=== PATIENT | male | born 1985 | race African-American/Black ===

== ENCOUNTER 2019-12-10 09:26 | Emergency (ER) | payer SELFPAY ==
[2019-12-10] MEDS ORDERED: TETANUS & DIPHTHERIA TOX,ADULT 0.5 ML VIAL ONE (10:18)
[2019-12-10] MEDS ORDERED: FENTANYL CITR 100 MCG/2 ML ONE (10:18)
[2019-12-10] MEDS ORDERED: PIPER/TAZO/NS 3.375gm 3.375 GM/100 ML BAG ONE (10:18)
[2019-12-10] MEDS ORDERED: NA CHLORIDE 0.9% 2,000 ML ONE (10:22)
[2019-12-10 10:23] LABS: Absolute Lymphocytes (CBC) 2.4 K/uL (0.7-4.9); Basophils % 0.6 % (0-1.3); Hematocrit 40.5 % (39.6-49.0); Lymphocytes % 17.6 % (15.3-44.8); MPV 8.3 fL (7.6-11.3); RBC Red Blood Cell Count 4.84 M/uL (4.33-5.43)
[2019-12-10 10:35] LABS: BUN Blood Urea Nitrogen 16 mg/dL (7-18); Bicarbonate 25 mmol/L (21-32); Glucose Level 112 mg/dL (74-106); Potassium 3.7 mmol/L (3.5-5.1); Sodium Level 139 mmol/L (136-145)
[2019-12-10] MEDS ORDERED: VANCOMYCIN 1.5 GM in NA CHLORIDE 0.9% 500 ML IVPB ONE (11:00)
--- NOTE | 2019-12-10 11:21 | RAD REPORT ---
EXAM DESCRIPTION: RAD - Elbow Left 2 View - 12/10/2019 10:45 am CLINICAL HISTORY: Arm pain and swelling, suspected abscess COMPARISON: None. FINDINGS: No fracture is identified and no elevated posterior fat pad. No dislocation periosteal reaction. Prominent soft tissues are present posterior to the proximal fore arm. No air or foreign body in the soft tissues. IMPRESSION: Posterior left elbow and proximal forearm soft tissue swelling with no air or foreign venancio dy. No acute bone or joint component seen.
[2019-12-10] MEDS ORDERED: LIDOCAINE 1% MPF 5 ML VIAL ONE (13:59)
--- NOTE | 2019-12-10 14:19 | EDPHYS ---
Physician Documentation [facility] Name: Kailash Delgado Age: 34 yrs Sex: Male : 1985 Arrival Date: 12/10/2019 Time: 09:28 Bed 13 Private MD: RAFY Physician Eber Cuenca HPI: 12/09 10:02 This 34 yrs old Black Male presents to ER via Ambulatory with complaints of Abscess. snw 10:02 The patient presents with an abscess of the palmar aspect of left forearm. Description: snw The affected area is moderate sized, large, well demarcated, draining, erythematous, swollen, tense. Onset: The symptoms/episode began/occurred gradually, 1 week(s) ago, and became worse and became persistent. Associated signs and symptoms: Pertinent positives: left elbow edema. Modifying factors: the symptoms are alleviated by nothing. Severity of symptoms: At their worst the symptoms were severe. The patient has not experienced similar symptoms in the past. The patient has not recently seen a physician. Historical: - Allergies: 09:36 No Known Allergies; ss - Home Meds: 09:36 None [Active]; ss - PMHx: 09:36 None; ss - PSHx: 09:36 None; ss - Immunization history:: Adult Immunizations up to date. - Social history:: Smoking status: Patient reports the use of cigarette tobacco products, smokes one pack cigarettes per day. ROS: 09:59 Constitutional: Negative for fever, chills, and weight loss, Eyes: Negative for injury, snw pain, redness, and discharge, ENT: Negative for injury, pain, and discharge, Neck: Negative for injury, pain, and swelling, Cardiovascular: Negative for chest pain, palpitations, and edema, Respiratory: Negative for shortness of breath, cough, wheezing, and pleuritic chest pain, Abdomen/GI: Negative for abdominal pain, nausea, vomiting, diarrhea, and constipation, Back: Negative for injury and pain, : Negative for injury, bleeding, discharge, and swelling, MS/Extremity: Negative for injury and deformity, Neuro: Negative for headache, weakness, numbness, tingling, and seizure. 09:59 Skin: Positive for abscess, swelling, of the palmar aspect of left forearm, tenderness, began draining 3-4 days ago. Exam: 09:59 Constitutional: This is a well developed, well nourished patient who is awake, alert, snw and in no acute distress. Head/Face: Normocephalic, atraumatic. Eyes: Pupils equal round and reactive to light, extra-ocular motions intact. Lids and lashes normal. Conjunctiva and sclera are non-icteric and not injected. Cornea within normal limits. Periorbital areas with no swelling, redness, or edema. ENT: Nares patent. No nasal discharge, no septal abnormalities noted. Tympanic membranes are normal and external auditory canals are clear. Oropharynx with no redness, swelling, or masses, exudates, or evidence of obstruction, uvula midline. Mucous membranes moist. Neck: Trachea midline, no thyromegaly or masses palpated, and no cervical lymphadenopathy. Supple, full range of motion without nuchal rigidity, or vertebral point tenderness. No Meningismus. Chest/axilla: Normal chest wall appearance and motion. Nontender with no deformity. No lesions are appreciated. Cardiovascular: Regular rate and rhythm with a normal S1 and S2. No gallops, murmurs, or rubs. Normal PMI, no JVD. No pulse deficits. Respiratory: Lungs have equal breath sounds bilaterally, clear to auscultation and percussion. No rales, rhonchi or wheezes noted. No increased work of breathing, no retractions or nasal flaring. Abdomen/GI: Soft, non-tender, with normal bowel sounds. No distension or tympany. No guarding or rebound. No evidence of tenderness throughout. Back: No spinal tenderness. No costovertebral tenderness. Full range of motion. MS/ Extremity: Pulses equal, no cyanosis. Neurovascular intact. Full, normal range of motion. left elbow swollen, + ROM Neuro: Awake and alert, GCS 15, oriented to person, place, time, and situation. Cranial nerves II-XII grossly intact. Motor strength 5/5 in all extremities. Sensory grossly intact. Cerebellar exam normal. Normal gait. Psych: Awake, alert, with orientation to person, place and time. Behavior, mood, and affect are within normal limits. 09:59 Skin: Appearance: normal except for affected area, Color: normal in color, abscess, that is moderate sized, of the palmar aspect of left forearm, with drainage, that is purulent, cellulitis, induration, that is moderate is noted, Other without fluctuance. Vital Signs: 09:35 BP 117 / 94; Pulse 87; Resp 18; Temp 98.2(TE); Pulse Ox 97% on R/A; Weight 56.7 kg; ss Height 5 ft. 5 in. (165.10 cm); Pain 8/10; 10:06 BP 106 / 76; Pulse 77; Resp 18; Pulse Ox 99% on R/A; Pain 8/10; em 09:35 Body Mass Index 20.80 (56.70 kg, 165.10 cm) Procedures: 14:13 I \T\ D: Incision and drainage was performed for an abscess of the left palmar aspect of snw left forearm Prepped with hibiclens. Anesthetized with 5 ml's 1% Lidocaine. Incised with #11 blade. Drained moderate amount large amount purulent fluid. Packed with sterile gauze, Dressing: sterile 4x4 gauze, the patient tolerated the procedure well. MDM: 09:40 Patient medically screened. [facility] 14:13 Data reviewed: vital signs, nurses notes. Data interpreted: Pulse oximetry: on room air snw is 99 %. Interpretation: normal. Counseling: I had a detailed discussion with the patient and/or guardian regarding: the historical points, exam findings, and any diagnostic results supporting the discharge/admit diagnosis, lab results, the need for outpatient follow up, to return to the emergency department if symptoms worsen or persist or if there are any questions or concerns that arise at home. Response to treatment: the patient's symptoms have markedly improved after treatment. Special discussion: I discussed in detail with the patient the higher chance of wound infection based on his presenting history. Based on the history and exam findings, there is no indication for further emergent testing or inpatient evaluation. I discussed with the patient/guardian the need to see the primary care provider for further evaluation of the symptoms. 12/09 09:53 Order name: CBC with Diff; Complete Time: 10:48 snw 12/09 09:53 Order name: Blood Culture Adult (2) snw 12/09 09:53 Order name: Lactate; Complete Time: 10:40 snw 12/09 09:53 Order name: Procalcitonin; Complete Time: 10:58 snw 12/09 09:53 Order name: ESR; Complete Time: 10:48 snw 12/09 09:53 Order name: Chem 7; Complete Time: 10:40 snw 12/09 10:12 Order name: Elbow Left 2 View XRAY; Complete Time: 11:32 snw Administered Medications: 10:39 Drug: Tetanus-Diphtheria Toxoid Adult 0.5 ml {Evening Sitter: [employer]. Exp: em 09/07/2021. Lot #: [id number]. } Route: IM; Site: right deltoid; 11:20 Follow up: Response: No adverse reaction em 10:41 Drug: fentaNYL (PF) 50 mcg Route: IVP; Site: right forearm; em 11:20 Follow up: Response: No adverse reaction; Marked relief of symptoms; Pain is decreased; em RASS: Alert and Calm (0) 10:42 Drug: Zosyn 3.375 grams Route: IVPB; Infused Over: 60 mins; Site: right forearm; em 11:45 Follow up: Response: No adverse reaction; IV Status: Completed infusion; IV Intake: em 100ml 11:50 Drug: vancoMYCIN 1.5 grams Route: IVPB; Infused Over: 2 hrs; Site: right forearm; em 14:58 Follow up: Response: No adverse reaction; IV Status: Completed infusion; IV Intake: em 500ml 12:24 Drug: fentaNYL (PF) 25 mcg Route: IVP; Site: right forearm; em 13:00 Follow up: Response: No adverse reaction; Marked relief of symptoms; Pain is decreased; em RASS: Alert and Calm (0) 14:00 Drug: Lidocaine (1 %) 5 ml {Note: adminisitered by DORCAS Salcido.} Volume: 5 ml; Route: em Infiltration; Site: wound; 14:20 Follow up: Response: No adverse reaction; Marked relief of symptoms; Pain is decreased em Disposition: 16:47 Co-signature as Attending Physician, Eber Cuenca MD I agree with the assessment and jay plan of care. Disposition: 12/10/19 14:18 Discharged to Home. Impression: Cutaneous abscess of left upper limb. - Condition is Stable. - Discharge Instructions: Skin Abscess, Incision and Drainage, VIS, Tetanus, Diphtheria (Td) - CDC, Wound Care, Wound Packing. - Prescriptions for Mobic 7.5 mg Oral Tablet - take 1 tablet by ORAL route once daily take with food; 20 tablet. Doxycycline Hyclate 100 mg Oral Tablet - take 1 tablet by ORAL route every 12 hours; 20 tablet. - Work release form, Medication Reconciliation Form, Thank You Letter, Antibiotic Education, Prescription Opioid Use form. - Follow up: Emergency Department; When: As needed; Reason: Worsening of condition. Follow up: Private Physician; When: 2 - 3 days; Reason: Recheck today's complaints, Continuance of care, Re-evaluation by your physician. Signatures: Dispatcher [employer] EDEber Ambrocio MD MD cha Therrien, Shelly, ROGER-Shira ATMOSPHERIC DRIER TENDER-Tanvir Huerta RN RN em Smirch, Shelby, RN RN ss Corrections: (The following items were deleted from the chart) 10:04 09:59 Constitutional: This is a well developed, well nourished patient who is awake, snw alert, and in no acute distress. Head/Face: Normocephalic, atraumatic. Eyes: Pupils equal round and reactive to light, extra-ocular motions intact. Lids and lashes normal. Conjunctiva and sclera are non-icteric and not injected. Cornea within normal limits. Periorbital areas with no swelling, redness, or edema. ENT: Nares patent. No nasal discharge, no septal abnormalities noted. Tympanic membranes are normal and external auditory canals are clear. Oropharynx with no redness, swelling, or masses, exudates, or evidence of obstruction, uvula midline. Mucous membranes moist. Neck: Trachea midline, no thyromegaly or masses palpated, and no cervical lymphadenopathy. Supple, full range of motion without nuchal rigidity, or vertebral point tenderness. No Meningismus. Chest/axilla: Normal chest wall appearance and motion. Nontender with no deformity. No lesions are appreciated. Cardiovascular: Regular rate and rhythm with a normal S1 and S2. No gallops, murmurs, or rubs. Normal PMI, no JVD. No pulse deficits. Respiratory: Lungs have equal breath sounds bilaterally, clear to auscultation and percussion. No rales, rhonchi or wheezes noted. No increased work of breathing, no retractions or nasal flaring. Abdomen/GI: Soft, non-tender, with normal bowel sounds. No distension or tympany. No guarding or rebound. No evidence of tenderness throughout. Back: No spinal tenderness. No costovertebral tenderness. Full range of motion. MS/ Extremity: Pulses equal, no cyanosis. Neurovascular intact. Full, normal range of motion. Neuro: Awake and alert, GCS 15, oriented to person, place, time, and situation. Cranial nerves II-XII grossly intact. Motor strength 5/5 in all extremities. Sensory grossly intact. Cerebellar exam normal. Normal gait. Psych: Awake, alert, with orientation to person, place and time. Behavior, mood, and affect are within normal limits. snw 15:00 14:18 12/10/2019 14:18 Discharged to Home. Impression: Cutaneous abscess of left upper em limb. Condition is Stable. Forms are Medication Reconciliation Form, Thank You Letter, Antibiotic Education, Prescription Opioid Use. Follow up: Emergency Department; When: As needed; Reason: Worsening of condition. Follow up: Private Physician; When: 2 - 3 days; Reason: Recheck today's complaints, Continuance of care, Re-evaluation by your physician. snw
--- NOTE | 2019-12-10 14:19 | ER ---
Nurse's Notes [facility] Name: Kailash Delgado Age: 34 yrs Sex: Male : 1985 Arrival Date: 12/10/2019 Time: 09:28 Bed 13 Private MD: Diagnosis: Cutaneous abscess of left upper limb Presentation: 12/09 09:35 Chief complaint: Patient states: abscess to L FA x 6-7 days. Denies fever. Coronavirus ss screen: The patient has NOT traveled to [place] in the past 14 days. Proceed with normal triage procedures. Ebola Screen: Patient denies exposure to infectious person. Patient denies travel to an Ebola-affected area in the 21 days before illness onset. Initial Sepsis Screen: Does the patient meet any 2 criteria? No. Patient's initial sepsis screen is negative. Does the patient have a suspected source of infection? Yes: Skin breakdown/wound. Risk Assessment: Do you want to hurt yourself or someone else? Patient reports no desire to harm self or others. 09:35 Method Of Arrival: Ambulatory ss 09:35 Acuity: CRISTIAN 3 ss Historical: - Allergies: 09:36 No Known Allergies; ss - Home Meds: 09:36 None [Active]; ss - PMHx: 09:36 None; ss - PSHx: 09:36 None; ss - Immunization history:: Adult Immunizations up to date. - Social history:: Smoking status: Patient reports the use of cigarette tobacco products, smokes one pack cigarettes per day. Screenin:37 Abuse screen: Denies threats or abuse. Denies injuries from another. Nutritional ss screening: No deficits noted. Tuberculosis screening: Never had TB. Fall Risk None identified. Assessment: 09:37 General: Appears in no apparent distress. comfortable, Behavior is calm, cooperative, ss Denies fever, feeling ill, fatigue, chills. Pain: Complains of pain in palmar aspect of left forearm Pain currently is 8 out of 10 on a pain scale. Quality of pain is described as tender, throbbing. Neuro: Level of Consciousness is awake, alert, obeys commands, Oriented to person, place, time, situation. Cardiovascular: Pulses are palpable in right radial artery and left radial artery. Respiratory: Airway is patent Respiratory effort is even, unlabored, Respiratory pattern is regular, symmetrical. EENT: Nares are clear Oral mucosa is moist. Throat is clear. Derm: Skin is dry, Abscess located on palmar aspect of left forearm is golf ball sized, has purulent drainage, is hot to touch, is red, is raised. Musculoskeletal: Circulation, motion, and sensation intact. Range of motion: intact in all extremities. 11:20 Reassessment: Patient appears in no apparent distress at this time. Patient and/or em family updated on plan of care and expected duration. Pain level reassessed. Patient is alert, oriented x 3, equal unlabored respirations, skin warm/dry/pink. Patient denies pain at this time. Patient states feeling better. Vital Signs: 09:35 BP 117 / 94; Pulse 87; Resp 18; Temp 98.2(TE); Pulse Ox 97% on R/A; Weight 56.7 kg; ss Height 5 ft. 5 in. (165.10 cm); Pain 8/10; 10:06 BP 106 / 76; Pulse 77; Resp 18; Pulse Ox 99% on R/A; Pain 8/10; em 09:35 Body Mass Index 20.80 (56.70 kg, 165.10 cm) ED Course: 09:28 Patient arrived in ED. mr 09:32 Loly Winter, [facility] snw 09:33 Eber Cuenca MD is Attending Physician. snw 09:35 Sindhu Braun, RN is Primary Nurse. ss 09:36 Triage completed. ss 09:36 Arm band placed on right wrist. ss 09:37 Patient has correct armband on for positive identification. Bed in low position. Call light in reach. 10:20 Initial lab(s) drawn, by me, sent to lab. Inserted saline lock: 20 gauge forearm, using em aseptic technique. Blood collected. 10:46 Elbow Left 2 View XRAY In Process Unspecified. EDMS 14:30 Assist provider with I \T\ D: of an abscess on left elbow Set up I\T\D tray. Performed by em Sindhu Braun RN Wound packed. 4X4s, Dressing with 4X4s, tape Patient tolerated well. 14:57 IV discontinued, intact, bleeding controlled, No redness/swelling at site. Pressure em dressing applied. Administered Medications: 10:39 Drug: Tetanus-Diphtheria Toxoid Adult 0.5 ml {First Line Supervisor: [employer]. Exp: em 09/07/2021. Lot #: [id number]. } Route: IM; Site: right deltoid; 11:20 Follow up: Response: No adverse reaction em 10:41 Drug: fentaNYL (PF) 50 mcg Route: IVP; Site: right forearm; em 11:20 Follow up: Response: No adverse reaction; Marked relief of symptoms; Pain is decreased; em RASS: Alert and Calm (0) 10:42 Drug: Zosyn 3.375 grams Route: IVPB; Infused Over: 60 mins; Site: right forearm; em 11:45 Follow up: Response: No adverse reaction; IV Status: Completed infusion; IV Intake: em 100ml 11:50 Drug: vancoMYCIN 1.5 grams Route: IVPB; Infused Over: 2 hrs; Site: right forearm; em 14:58 Follow up: Response: No adverse reaction; IV Status: Completed infusion; IV Intake: em 500ml 12:24 Drug: fentaNYL (PF) 25 mcg Route: IVP; Site: right forearm; em 13:00 Follow up: Response: No adverse reaction; Marked relief of symptoms; Pain is decreased; em RASS: Alert and Calm (0) 14:00 Drug: Lidocaine (1 %) 5 ml {Note: adminisitered by NP. Loly} Volume: 5 ml; Route: em Infiltration; Site: wound; 14:20 Follow up: Response: No adverse reaction; Marked relief of symptoms; Pain is decreased em Intake: 11:45 IV: 100ml; Total: 100ml. em 14:58 IV: 500ml; Total: 600ml. em Outcome: 14:18 Discharge ordered by . snw 14:56 Discharged to home ambulatory. em 14:56 Condition: good 14:56 Discharge instructions given to patient, Instructed on discharge instructions, follow up and referral plans. medication usage, wound care, Demonstrated understanding of instructions, follow-up care, medications, wound care, Prescriptions given X 2. 15:00 Patient left the ED. em Signatures: Dispatcher [employer] EDLoly Huertas, MELANIEC NURSE STAFF INDUSTRIAL-Dominic SevillaaBarbara OjTanvir, RN RN Sindhu Braun RN RN ss
[2019-12-10 16:01] VITALS: TEMP 98.2
[2019-12-10 16:02] VITALS: BP 106/76; O2SAT 99
== END 2019-12-10 15:00 | disposition home or self-care (01) ==
LOC: ER 09:26
PROC: 0J9H0ZZ Drainage of Left Lower Arm Subcutaneous Tissue and Fascia, Open Approach (ICD-10-PCS; principal; 2019-12-10)
DX: L02.414 Cutaneous abscess of left upper limb (principal); F17.210 Nicotine dependence, cigarettes, uncomplicated
CPT/HCPCS: 36415; 80048; 83605; 84145; 85025; 85652; 87040; 90471; 90714; 96365; 96366; 96367; 96375; 99284; J2543; J3010; J7030; J7040